=== PATIENT | male | born 1935 | race Caucasian/White ===

== ENCOUNTER 2019-06-30 14:16 | Emergency (ER) | payer OTHER, MEDICARE, BC ==
[~2019-06-30] VITALS: Ht 170.2 cm; Wt 81.7 kg
[2019-06-30] MEDS ORDERED: TOPROL XL25 MG PO (14:31)
[2019-06-30] MEDS ORDERED: ZOCOR40 MG PO (14:31)
[2019-06-30] MEDS ORDERED: ASPIRIN81 MG PO (14:32)
[2019-06-30] MEDS ORDERED: BENAZEPRIL-HCT1 EAC1 PO (14:32)
--- NOTE | 2019-06-30 19:09 | EKG ---
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
== END 2019-06-30 17:42 | disposition home or self-care (01) ==
LOC: ED 14:16
DX: R07.9 Chest pain, unspecified (principal); R91.1 Solitary pulmonary nodule; I10 Essential (primary) hypertension; I25.2 Old myocardial infarction; F17.200 Nicotine dependence, unspecified, uncomplicated; Z79.899 Other long term (current) drug therapy; Z79.82 Long term (current) use of aspirin
CPT/HCPCS: 71045; 80053; 83735; 84484; 85025; 93005; 93010; 99285-25; 99406